=== PATIENT | female | born 1990 | race Two or more races ===

== ENCOUNTER 2024-05-19 21:08 | Emergency (ER) | payer OTHER ==
[~2024-05-19] VITALS: Ht 160 cm; Wt 56.6 kg
[2024-05-19 22:02] LABS: Urine Bacteria None Seen /hpf (None Seen)
[2024-05-19 22:32] LABS: Urine Blood 3+ /uL (Negative); Urine Clarity Ex.Turbid (Clear); Urine Color Light-Red (Yellow); Urine Mucus FEW (None Seen); Urine Protein, UAD 1+ (Negative); Urine Specific Gravity 1.008 (1.001-1.035); Urine Urobilinogen Normal (Negative); Urine WBC 563 /hpf (0 - 5)
[2024-05-19 22:32] LABS: Basophils # (auto) 0.1 10 ^3/uL (0-0.2); Basophils % (auto) 0.5 % (0.0-2.0); Eosinophils # (auto) 0.1 10 ^3/uL (0-0.8); Eosinophils % (auto) 1.2 % (0.0-7.0); Lymphocytes % (auto) 12.5 % (10.0-50.0); Monocytes # (auto) 0.6 10 ^3/uL (0-1.3); Red Cell Distribution Width 16.9 % (11.8-14.3)
[2024-05-19 22:34] LABS: Hematocrit 32.3 % (36.0-46.0); Lymphocytes # (auto) 1.5 10 ^3/uL (0.4-5.4); Mean Corpuscular Hemoglobin 21.3 pg (28.0-32.0); Mean Corpuscular Hgb Conc. 31.1 g/dL (32.0-36.0); Mean Corpuscular Volume 68.5 fL (80.0-100.0); Monocytes % (auto) 5.3 % (0.0-12.0); Neutrophils # (auto) 9.8 10 ^3/uL (1.6-8.6); Neutrophils % (auto) 80.5 % (37.0-80.0); Red Blood Cells 4.71 10^6/uL (4.0-5.20); White Blood Cell 12.1 10^3/uL (4.4-10.8)
[2024-05-19 22:47] LABS: Alanine Aminotransferase 43 U/L (7-40); Alkaline Phosphatase 121 U/L (46-116); Anion Gap 6 (5-15); Aspartate Aminotransferase 113 U/L (13-40); BUN/Creatinine Ratio 9.7 (10.0-20.0); Blood Urea Nitrogen 6 mg/dL (9-23); Calcium 9.2 mg/dL (8.7-10.4); Carbon Dioxide 24 mmol/L (20-30); Chloride 107 mmol/L (98-107); Glucose 95 mg/dL (74-106); Lipase 44 U/L (12-53); Potassium 3.8 mmol/L (3.5-5.1); Sodium 137 mmol/L (136-145)
[2024-05-19 22:48] LABS: Bilirubin, Total 0.6 mg/dL (0.2-1.0); Total Protein 6.9 g/dL (5.7-8.2)
[2024-05-19 23:00] LABS: Anisocytosis Slight; Hypochromia Moderate; Platelet Estimate Adequate
[2024-05-19 23:30] VITALS: BP 100/58; PULSE 75; RESP 16; O2SAT 100
[2024-05-19] MEDS: ONDANSETRON ODT 4 MG TAB PO ONE (23:31)
[2024-05-19] MEDS: HYDROcodone-ACET 10/325MG TAB PO ONE (23:32)
[2024-05-20] MEDS ORDERED: IBUP-1455 PO (01:06)
[2024-05-20] MEDS ORDERED: FER325T PO (01:06)
[2024-05-20] MEDS ORDERED: LEVO750T40 PO (01:06)
[2024-05-20] MEDS: levoFLOXacin 250 MG TAB PO ONE (01:30)
[2024-05-20] MEDS: SODIUM CHLORIDE 0.9% 1,000 ML IV ONE (01:30)
== END 2024-05-20 01:44 | disposition home or self-care (01) ==
LOC: ER 21:08
DX: N30.90 Cystitis, unspecified without hematuria (principal); R10.2 Pelvic and perineal pain; D64.9 Anemia, unspecified; Z90.49 Acquired absence of other specified parts of digestive tract; Z79.899 Other long term (current) drug therapy; Z79.1 Long term (current) use of non-steroidal anti-inflammatories (NSAID)
CPT/HCPCS: 36415; 74176; 80053; 81001; 83605; 83690; 84484; 84702; 85025; 99284; Q0162